=== PATIENT | female | born 1990 | race Caucasian/White ===

== ENCOUNTER 2017-08-13 12:23 | Emergency (ER) | payer MEDICAID, SELFPAY ==
[2017-08-13 13:12] VITALS: BP 116/68; PULSE 87; RESP 20; TEMP 36.6; O2SAT 100; BMI 27.7
--- NOTE | 2017-08-13 14:28 | HMH.EDUTC ---
[facility] [place] Clinical Impression: Strep throat Disposition: Home, Self-Care Condition on Discharge: Good Instructions: DI for Strep Throat Additional Instructions: * Start antibiotic CORI and be sure to take as ordered for the FULL length of time although you should start to feel better in 24-48 hours. * change toothbrush and toothpaste 24-48 hours after starting antibiotic * Monitor Temp. Tylenol every 4 hours as needed no more then 5 times a day or 4000mg in 24 hours and/or ibuprofen every 6 hours as needed no more then 3200mg in 24 hours (as long as your primary care doctor has told you that it is ok to take both) for fever/aches/pain. ER if fever no less than 101 despite tylenol and Ibuprofen * Encourage fluids, water, gatorade, powerade, pedialyte if infant/toddler/child * cold fluids, popsicles, ice cream feel good * you are contagious until you have taken the antibiotic for 24 hours. No school tomorrow. * Avoid kissing anyone, including parents. No eating or drinking after anyone. You are contagious. See primary care or PAC, clinic or ER IMMEDIATELY for new or worsening symptoms OR no noticeable improvement over the next 24-48 hours. 911 for difficulty breathing or swallowing Prescriptions: Amoxicillin [Amoxicillin 500mg Cap] 500 mg PO BID #20 cap Time of Disposition: 14:57 Medical Decision Making Vital Signs: 08/13/17 13:12 08/13/17 14:59 Temperature 97.8 F 98.7 F Temperature Source Temporal Artery Scan Temporal Artery Scan Pulse Rate 76 Pulse Rate [Left Brachial] 87 Respiratory Rate 20 18 Blood Pressure 122/77 Blood Pressure [Left Arm] 116/68 Blood Pressure Mean [Left Arm] 84 Blood Pressure Source [Left Arm] Automatic Cuff Blood Pressure Position Sitting Blood Pressure Position [Left Arm] Sitting 02 Sat by Pulse Oximetry 100 Oxygen Delivery Method Room Air - Lab Data Lab results reviewed: Yes: I reviewed the patient's lab results. Lab Results 08/13/17 13:16: Influenza Type A Ag Negative, Influenza Type B Ag Negative, Strep Scn Rapid Clinic Positive A - Jer Inquiry Pt receiving controlled substance: No [facility] [place] - General Stated complaint: swollen throat,ear pain,body aches Time Seen by Provider: 08/13/17 13:28 Mode of Arrival: Ambulatory Source of Information: Patient Limitations: No Limitations Description of Symptoms (Recalled from Triage Doc. by RN): PT C/O BODYACHES, EAR PAIN, SORE THROAT HEENT Symptoms (Recalled from RN notes): Yes (SORE THROAT, EAR PAIN) Resp Symptoms (Recalled from RN notes): No Skin Symptoms (Recalled from RN notes): No MS Symptoms (Recalled from RN notes): Yes (BODYACHES) Functional Status (Recalled from RN notes): N/A - History of Present Illness Provider Complaint: c/o I think I might have the flu . Sore throat x 1 week with bodyaches, chills, neck gland pain x2 days. No exposure to flu. Son just tested positive for strep today. Hasn't taken or tried anything for symptoms. - Related Data Previous Rx's Medication Instructions Recorded Amoxicillin [Amoxicillin 500mg 500 mg PO BID #20 cap 08/13/17 Cap] Allergies Allergy/AdvReac Type Severity Reaction Status Date / Time No Known Allergies Allergy Unverified 06/29/17 14:52 - Worker's Comp Is this a Worker's Comp case?: No [facility] History I have reviewed the patient's past medical history: Yes Medical History: Denies:: Cancer, Diabetes Mellitus Type 1, Diabetes Mellitus Type 2, Hypertension, MRSA Other Surgeries: Yes: Tubal Ligation Amputation: No Fractures: No - *Social History Smoking Status: Never smoker Alcohol Intake: never - Psychiatric History Expresses thoughts of harming self/others: None Suicide Plan Description: No Plan ROS Obtained: Yes Systems reviewed as appropriate & no additional complaints - Constitutional Constitutional: Reports as per HPI, Reports fatigue, Denies fever(s) - Eyes Eyes: Denies eye discharge, Denies eye pain
[2017-08-13 14:41] LABS: UTC Influenza B Antigen Negative (Negative)
[2017-08-13 14:42] LABS: UTC Influenza A Antigen Negative (Negative); UTC Strep Screen (Rapid) Positive (Negative)
[2017-08-13 14:59] VITALS: BP 122/77; PULSE 76; RESP 18; TEMP 37.1; O2SAT 97
== END 2017-08-13 15:01 | disposition home or self-care (01) ==
PROVIDERS: Emergency Provider Nurse Practitioner Family; Family Provider Physician Assistant
DX: J02.9 Acute pharyngitis, unspecified (principal)
CPT/HCPCS: 87804; 87880; 99201

== ENCOUNTER 2020-09-27 13:46 | Emergency (ER) | payer MEDICAID, SELFPAY ==
[2020-09-27 13:47] VITALS: BP 139/57; PULSE 99; RESP 18; TEMP 36.4; O2SAT 99; BMI 34.8
[2020-09-27 14:30] VITALS: BP 119/88; PULSE 99; O2SAT 97
--- NOTE | 2020-09-27 14:46 | HMH.EDGENADL ---
ED Disposition Clinical Impression: Sciatic leg pain Disposition: Home, Self-Care Condition on Discharge: Good Prescriptions: Hydrocod/Acet 5/325 mg [[place] 5/325mg tablet] 1 tab PO Q6HP PRN 3 Days #12 tab PRN Reason: Mild To Moderate Pain Transmission Status: Sent to [facility] predniSONE [Prednisone 5mg Tab Dose-Pack] 5 mg PO UD DOSE PK 7 Days #1 pack Transmission Status: Pending to [facility] Referrals: Mata Mena MD [Primary Care Provider] - - Critical Care Critical Care Time: No Attestation: On 09/27/20, the high probability of a clinically significant, sudden or life threatening deterioration of the following system(s) required my full and direct attention, intervention and personal management. The time I documented below is in addition to time spent performing reported procedures but includes the following listed in this critical care notation. Medical Decision Making - Medical Records Medical records reviewed: Yes: I reviewed the patient's medical records. - Jer Inquiry Pt receiving controlled substance: Yes Jer was queried for this patient: Yes Risks and benefits of using a controlled substance: were discussed with pt by me Vital Signs: 09/27/20 13:47 09/27/20 14:30 Temperature 97.5 F L Temperature Source Oral Pulse Rate 99 H Pulse Rate [Left Radial] 99 H Respiratory Rate 18 Blood Pressure 119/88 Blood Pressure [Right Arm] 139/57 L Blood Pressure Mean 95 Blood Pressure Mean [Right Arm] 84 Blood Pressure Source [Right Arm] Automatic Cuff Blood Pressure Position [Right Arm] Sitting 02 Sat by Pulse Oximetry 99 97 Oxygen Delivery Method Room Air Orders (Tests/Meds): ED MEDICATIONS Generic Name Dose Route Start Last Admin Trade Name Freq PRN Reason Stop Dose Admin Methocarbamol 500 mg 09/27/20 21:00 09/27/20 14:08 Methocarbamol 500mg Tablet PO 10/27/20 20:59 500 mg BID VERÓNICA Administration Discontinued Medications Generic Name Dose Route Start Last Admin Trade Name Freq PRN Reason Stop Dose Admin Ketorolac Tromethamine 30 mg 09/27/20 14:04 09/27/20 14:08 Ketorolac 60mg/2ml Vial IM 09/27/20 14:05 30 mg ONCE ONE Administration Medical Decision Narrative: Female presents with symptoms consistent with Dony ago. She is in no acute distress nontoxic-appearing no concern for infectious etiology or traumatic etiology. She has no concerning finding for cauda equina syndrome. Given Toradol and muscle relaxer here and plan to discharge home with symptomatic treatment and return precautions and follow-up recommendations General Adult HPI - General Chief complaint: PAIN Stated complaint: back pain Time Seen by Provider: 09/27/20 13:50 Mode of Arrival: Ambulatory Limitations: No Limitations Description of Symptoms (Recalled from ER Triage Doc. by RN): c/o left lower back pain that goes into her left leg and thigh. States she has a hx of sciatic nerve but this pain feels a lot worse. Denies any injury. - History of Present Illness HPI narrative: 30-year-old female presents with left lower back pain going down her left leg. She says she has history of static and does take gabapentin regularly however the pain has been exacerbated because she has been traveling back and forth to [place]. She denies urinary or bowel incontinence. No groin numbness. No fever no chills. No trauma to her back. Onset (ago): year(s) (3) Radiation: back Severity: moderate, severe Quality: sharp Consistency: intermittent Relieving factors: rest Exacerbating factors: movement - Related Data Home Medications Medication Instructions Recorded Confirmed ALPRAZolam [Alprazolam 2mg Tab] 0.5 mg PO DAILY 06/22/18 06/22/18 Sertraline HCl [Zoloft 50mg tablet] 150 mg PO DAILY 06/22/18 06/22/18 Previous Rx's Medication Instructions Recorded Hydrocod/Acet 5/325 mg [Troy 1 tab PO Q6HP PRN #10 tab 06/22/18 5/325mg tablet]
[2020-09-27 15:35] VITALS: BP 112/65; PULSE 78; RESP 18; TEMP 36.6; O2SAT 98
== END 2020-09-27 15:36 | disposition home or self-care (01) ==
PROVIDERS: Emergency Provider Emergency Medicine; PCP Family Medicine
DX: M54.42 Lumbago with sciatica, left side (principal); F17.210 Nicotine dependence, cigarettes, uncomplicated
CPT/HCPCS: 96372; 99281